=== PATIENT | female | born 1960 | race Caucasian/White ===

== ENCOUNTER 2016-09-02 17:08 | Emergency (ER) | payer OTHER ==
[~2016-09-02] VITALS: Wt 79.3 kg
[~2016-09-02 17:08] MED LIST: ACET500C5 PO; ALBU8.5H3 INH; DOXY100T20 PO; IBUP400T22 PO; PRED20TA PO; PROM6.25 PO
[2016-09-02] MEDS ORDERED: ONDANSETRON (ODT) 4 MG TAB ODT STA (19:21)
[2016-09-02] MEDS ORDERED: KETOROLAC 60 MG INJ IM STA (19:21)
[2016-09-02 20:06] LABS: URINE BLOOD (Dip) POC 2+ (NEGATIVE)
[2016-09-02] MEDS ORDERED: IBUP-1542 PO (20:25)
[2016-09-02] MEDS ORDERED: BISM262O23 PO (20:25)
[2016-09-02] MEDS ORDERED: ONDA8TAB14 PO (20:25)
--- NOTE | 2016-09-02 20:27 | ERD ---
ER Documentation Chief Complaint Date/Time DATE: 09/02/16 TIME: 20:26 Chief Complaint NAUSEA VOMITING AND DIARRHEA SUDDEN ONSET TODAY. NO TRAUMA MILD HEADACHE HPI This 55-year-old female complains of sudden onset vomiting diarrhea started today. She has mild epigastric abdominal pain. She denies fevers. She is a mild bitemporal headache. She denies any foreign travel, blood, fever, urinary complaints. ROS All systems reviewed and are negative except as per history of present illness. Medications Home Meds Active Scripts Bismuth Subsalicylate* (Pepto-Bismol*) 262 Mg/15 Ml Oral.susp, 15 ML PO Q3H Y for DIARRHEA for 4 Days, ML Prov:DALTON STANFORD MD 09/02/16 Ondansetron (Ondansetron Odt) 8 Mg Tab.rapdis, 8 MG PO Q6H Y for NAUSEA AND/OR VOMITING, #10 TAB Prov:DALTON STANFORD MD 09/02/16 Ibuprofen* (Motrin*) 600 Mg Tab, 600 MG PO Q6, #15 TAB Prov:DALTON STANFORD MD 09/02/16 Albuterol Sulfate* (Proair HFA*) 8.5 Gm Hfa.aer.ad, 2 PUFF INH Q4, #1 INHALER Prov:NIDHI QUEEN PA-C 03/07/16 Prednisone* (Prednisone*) 20 Mg Tab, 40 MG PO DAILY for 4 Days, TAB Prov:NIDHI QUEEN PA-C 03/07/16 Doxycycline Hyclate* (Doxycycline Hyclate*) 100 Mg Tablet.dr, 100 MG PO BID for 10 Days, TAB Prov:NIDHI QUEEN PA-C 03/07/16 Acetaminophen* (Tylophen*) 500 Mg Capsule, 1 CAP PO Q4 Y for PAIN AND OR ELEVATED TEMP, #30 CAP Prov:JEFRY ROGERS PA-C 06/10/15 Ibuprofen* (Motrin*) 400 Mg Tab, 400 MG PO Q6H Y for PAIN AND OR ELEVATED TEMP, #30 TAB Prov:JEFRY ROGERS PA-C 06/10/15 Promethazine w/Codeine* (Phenergan w/Codeine* Syrup) 5 Ml Syrup, 5 ML PO Q4H Y for COUGH, #400 ML Prov:JEFRY ROGERS PA-C 06/10/15 Allergies Allergies: Coded Allergies: No Known Allergy (Unverified , 03/07/16) PMhx/Soc Medical and Surgical Hx: pt denies Surgical Hx History of Surgery: No Anesthesia Reaction: No Hx Neurological Disorder: No Hx Respiratory Disorders: Yes (asthma) Hx Cardiac Disorders: No Hx Psychiatric Problems: No Hx Miscellaneous Medical Probl: No Hx Alcohol Use: No Hx Substance Use: No Hx Tobacco Use: No Smoking Status: Never smoker Physical Exam Vitals Vital Signs Date Time Temp Pulse Resp B/P Pulse Ox O2 Delivery O2 Flow Rate FiO2 09/02/16 17:21 98.9 79 20 116/57 98 Physical Exam Const: [] Alert, [id number]. Head: Atraumatic Eyes: Normal Conjunctiva ENT: Normal External Ears, Nose and Mouth. Neck: Full range of motion..~ No meningismus. Resp: Clear to auscultation bilaterally Cardio: Regular rate and rhythm, no murmurs Abd: Soft, minimal epigastric tenderness. No Brothers sign no tenderness at McBurney's point no rebound. R, non distended. Normal bowel sounds Skin: No petechiae or rashes Back: No midline or flank tenderness Ext: No cyanosis, or edema Neur: Awake and alert Psych: Normal Mood and Affect Results 24 hrs Laboratory Tests Test 09/02/16 20:05 Bedside Urine pH (LAB) 5.5 Bedside Urine Protein (LAB) Trace Bedside Urine Glucose (UA) Negative Bedside Urine Ketones (LAB) Negative Bedside Urine Blood 2+ Bedside Urine Nitrite (LAB) Negative Bedside Urine Leukocyte Esterase (L Trace Current Medications Medications (Trade) Dose Ordered Sig/Salo Route PRN Reason Start Time Stop Time Status Last Admin Dose Admin Ondansetron HCl (Zofran Odt) 8 mg ONCE STAT ODT 09/02/16 19:21 09/02/16 19:23 DC 09/02/16 19:54 Ketorolac Tromethamine (Toradol) 60 mg ONCE STAT IM 09/02/16 19:21 09/02/16 19:23 DC 09/02/16 19:55 Procedures/MDM Urine shows trace leukocytes. HCG is negative. Patient was given Zofran 8 mg by mouth and Toradol 60 mg IM. Patient signs and symptoms of acute viral and diarrhea. Trace leukocytes are positive symptoms. Patient is able tolerate p.o.'s after observation treatment. Patient will be discharged home with prescription of Zofran, ibuprofen and Pepto-Bismol instruction to recheck for new onset treatment, worsening pain, blood, new worsening symptoms the next day. She should otherwise follow-up with primary doctor this week. The patient was stable with no new complaints during the ER course. Clinically, there is no current evidence to suggest meningitis, sepsis, acute abdomen, pneumonia, acute coronary syndrome, pulmonary embolism, or any other emergent condition appearing to require further evaluation or hospitalization. The patient should certainly return for any new or worsening symptoms per the aftercare instructions. They should otherwise follow-up with her primary care doctor for reevaluation this week. Departure Diagnosis: Primary Impression: Vomiting Vomiting type: unspecified Vomiting Intractability: unspecified Nausea presence: unspecified Qualified Code: R11.10 - Vomiting, intractability of vomiting not specified, presence of nausea not specified, unspecified vomiting type Additional Impression: Diarrhea Diarrhea type: unspecified type Qualified Code: R19.7 - Diarrhea, unspecified type Condition: Stable Patient Instructions: Diarrhea, Viral (Child) (Adult), Vomiting (5Y-Adult) Additional Instructions: probablamente un virus que dura 2-4 gipson. cheque otro rodney el proximo gunner para mas simptomas- vomito, dolor, cookie, problemas con respirando, o con machado doctor primario. DALTON STANFORD MD Sep 02, 2016 20:27
== END 2016-09-02 20:46 | disposition home or self-care (01) ==
LOC: FTE 17:08
DX: R11.10 Vomiting, unspecified (principal); R19.7 Diarrhea, unspecified; J45.909 Unspecified asthma, uncomplicated
CPT/HCPCS: 81003; J1885; 96372